=== PATIENT | female | born 2000 | race Caucasian/White ===

== ENCOUNTER → 2018-08-16 | Outpatient (CLI) | payer OTHER ==
[2018-08-16 13:51] LABS: ALBUMIN 3.9 GM/DL (3.2-5.2); ALT/SGPT 158 U/L (12-78); BILIRUBIN,TOTAL 0.4 MG/DL (0.2-1.0); BLOOD UREA NITROGEN 8 MG/DL (7-18); CALCIUM LEVEL 8.7 MG/DL (8.5-10.1); CARBON DIOXIDE LEVEL 24 MEQ/L (21-32); CHLORIDE LEVEL 106 MEQ/L (98-107); CREATININE FOR GFR 0.72 MG/DL (0.55-1.30); GLUCOSE, FASTING 88 MG/DL (70-100); POTASSIUM SERUM 4.1 MEQ/L (3.5-5.1); SODIUM LEVEL 140 MEQ/L (136-145); TOTAL PROTEIN 7.6 GM/DL (6.4-8.2)
[2018-08-16 13:52] LABS: FREE T4 1.45 NG/DL (0.78-1.33)
[2018-08-16 14:03] LABS: BASO # 0.1 10^3/uL (0.0-0.2); BASO % 0.9 % (0.0-1.0); EOS # 0.1 10^3/uL (0.0-0.50); EOS % 1.3 % (0.0-3.0); HEMATOCRIT 42.5 % (36.0-47.0); HEMOGLOBIN 15.5 g/dl (12.0-15.5); LYMPH # 2.6 10^3/uL (1.5-6.5); LYMPH % 27.4 % (24.0-44.0); MEAN CORPUSCULAR HEMOGLOBIN 31.5 pg (27.0-33.0); MEAN CORPUSCULAR HGB CONC 36.5 g/dl (32.0-36.5); MEAN CORPUSCULAR VOLUME 86.4 fl (80.0-96.0); MONO # 0.7 10^3/uL (0.0-0.8); NEUTROPHILS % 63.1 % (36.0-66.0); PLATELET COUNT, AUTOMATED 371 10^3/uL (150-450); RED BLOOD COUNT 4.92 10^6/uL (4.00-5.40); WHITE BLOOD COUNT 9.5 10^3/uL (4.0-10.0)
== END ==
LOC: M WUC 11:04
PROVIDERS: ATTEND Physician Assistant
DX: A09 Infectious gastroenteritis and colitis, unspecified (principal)

== ENCOUNTER → 2018-08-16 | Outpatient (REF) | payer OTHER | LOC: M LAB REF 14:18 | PROVIDERS: ATTEND Physician Assistant | DX: A09 Infectious gastroenteritis and colitis, unspecified (principal) ==

== ENCOUNTER 2021-02-11 22:50 | Emergency (ER) | payer OTHER ==
[~2021-02-11] VITALS: Ht 165.1 cm; Wt 108.1 kg
[2021-02-11] MEDS ORDERED: CYCL-707 (23:00)
[2021-02-11] MEDS ORDERED: IBUP80TA (23:00)
[2021-02-12] MEDS ORDERED: KETOROLAC 60MG 2ML VIAL IM ONE (00:20)
[2021-02-12] MEDS ORDERED: GABAPENTIN 300 MG CAP PO ONE (00:20)
[2021-02-12] MEDS ORDERED: diazePAM 5MG TABLET PO ONE (00:20)
--- NOTE | 2021-02-12 02:14 | REPVR ---
PROCEDURE INFORMATION: Exam: XR Lumbosacral Spine Exam date and time: 02/12/2021 12:18 AM Age: 20 years old Clinical indication: Other: Pain with radiculopathy TECHNIQUE: Imaging protocol: XR of the lumbosacral spine. Views: 4 or 5 views. COMPARISON: No relevant prior studies available. FINDINGS: Bones/joints: Normal. No acute fracture. Normal alignment. Soft tissues: Unremarkable. IMPRESSION: No acute findings. Electronically signed by: Jaswant Hernandez On 02/12/2021 02:13:49 AM
[2021-02-12] MEDS ORDERED: NEUR300C PO (02:21)
[2021-02-12] MEDS ORDERED: IBUP80TA PO (02:21)
[2021-02-12] MEDS ORDERED: METH-1165 PO (02:21)
[2021-02-12] MEDS ORDERED: PRED20TA PO (02:21)
[2021-02-12 02:29] VITALS: BP 129/75
== END 2021-02-12 02:30 | disposition home or self-care (01) ==
LOC: M ED 22:50
DX: M54.41 Lumbago with sciatica, right side (principal); F17.290 Nicotine dependence, other tobacco product, uncomplicated; Z88.1 Allergy status to other antibiotic agents; Z79.899 Other long term (current) drug therapy
CPT/HCPCS: 72110; 96372; 99283; J1885

== ENCOUNTER → 2022-04-25 | Outpatient (CLI) | payer OTHER ==
[~2022-04-25] MED LIST: CYCL-707; IBUP80TA; IBUP80TA PO; METH-1165 PO; NEUR300C PO; PRED20TA PO
[2022-04-25 15:47] LABS: FREE T4 1.05 NG/DL (0.76-1.46); THYROID STIMULATING HORMONE 0.915 uIU/ML (0.358-3.740)
[2022-04-25 16:09] LABS: FOLLICLE STIMULATING HORMONE 7.3 mIU/mL; LUTEINIZING HORMONE 17.5 mIU/mL; PROGESTERONE 0.7 NG/ML; PROLACTIN 5.6 NG/ML
== END ==
LOC: M PLALAB 09:56
PROVIDERS: ATTEND Specialist
DX: N92.6 Irregular menstruation, unspecified (principal)

== ENCOUNTER → 2022-07-25 | Outpatient (CLI) | payer MEDICAID, OTHER, SELFPAY | LOC: M WHC 07:29 | PROVIDERS: ATTEND Advanced Practice Midwife | DX: Z34.00 Encounter for supervision of normal first pregnancy, unspecified trimester (principal) ==

== ENCOUNTER → 2022-10-18 | Outpatient (CLI) | payer BC, OTHER | LOC: M WHC 09:07 | PROVIDERS: ATTEND Advanced Practice Midwife | DX: Z34.00 Encounter for supervision of normal first pregnancy, unspecified trimester (principal) ==

== ENCOUNTER → 2022-12-11 | Outpatient (CLI) | payer BC, OTHER | LOC: M WHC 09:22 | PROVIDERS: ATTEND Advanced Practice Midwife | DX: Z34.00 Encounter for supervision of normal first pregnancy, unspecified trimester (principal) ==

== ENCOUNTER → 2023-01-10 | Outpatient (CLI) | payer BC, OTHER ==
[2023-01-10 11:10] LABS: BASO % 0.3 % (0.0-1.0); EOS # 0.1 10^3/uL (0.0-0.5); HEMATOCRIT 34.6 % (36.0-47.0); HEMOGLOBIN 12.1 g/dl (12.0-15.5); LYMPH # 2.3 10^3/uL (1.5-5.0); LYMPH % 18.7 % (24.0-44.0); MEAN CORPUSCULAR HEMOGLOBIN 32.5 pg (27.0-33.0); MONO # 0.8 10^3/uL (0.0-0.8); MONO % 6.1 % (2.0-8.0); NEUTROPHILS # 9.2 10^3/uL (1.5-8.5); NEUTROPHILS % 73.3 % (36.0-66.0); PLATELET COUNT, AUTOMATED 296 10^3/uL (150-450); RED BLOOD COUNT 3.72 10^6/uL (4.00-5.40); WHITE BLOOD COUNT 12.5 10^3/uL (4.0-10.0)
[2023-01-10 11:15] LABS: BLOOD UREA NITROGEN 7 MG/DL (9-23); CALCIUM LEVEL 8.7 MG/DL (8.5-10.1); CARBON DIOXIDE LEVEL 25 MMOL/L (20-31); CHLORIDE LEVEL 106 MMOL/L (98-107); CREATININE FOR GFR 0.54 MG/DL (0.55-1.30); GLOMERULAR FILTRATION RATE > 60.0 (>60); GLUCOSE, FASTING 99 MG/DL (60-100); POTASSIUM SERUM 4.3 MMOL/L (3.5-5.1); SODIUM LEVEL 138 MMOL/L (136-145)
[2023-01-10 11:46] LABS: HEMOGLOBIN A1c 4.9 % (4.0-6.0)
== END ==
LOC: M PLALAB 08:17
PROVIDERS: ATTEND Advanced Practice Midwife
DX: Z34.00 Encounter for supervision of normal first pregnancy, unspecified trimester (principal)

== ENCOUNTER 2023-02-09 09:48 | Inpatient (IN) | payer BC, OTHER ==
[~2023-02-09] VITALS: Ht 167.6 cm; Wt 113.1 kg
[~2023-02-09 09:48] MED LIST changes: -ACET-683 PO; -LABE20TAB PO; -PRENTAB9 PO; -TUMS500C PO
[2023-02-09] MEDS ORDERED: TUMS500C PO (10:21)
[2023-02-09] MEDS ORDERED: PRENTAB9 PO (10:21)
[2023-02-09] MEDS ORDERED: HOME MED LIST COMPLETE! XX SCH (10:25)
[2023-02-09 10:26] VITALS: BP 179/109
[2023-02-09 10:48] VITALS: BP 148/83
[2023-02-09] MEDS ORDERED: LACTATED RINGER'S 1000 ML IV STA (12:19)
[2023-02-09] MEDS ORDERED: TRANEXAMIC ACID INJection 1,000 MG in NS 100 ML IV PRN (12:20)
[2023-02-09] MEDS ORDERED: METHYLERGONOVINE MALEATE 0.2MG/ML 1ML VIAL IM PRN (12:20)
[2023-02-09] MEDS ORDERED: OXYTOCIN DRIP 30 UNITS in IV 1 EA IV PRN (12:20)
[2023-02-09] MEDS ORDERED: CARBOPROST TROMETHAMINE 250 MCG/ML AMP IM PRN (12:20)
[2023-02-09] MEDS ORDERED: LIDOCAINE 1% MDV 20ML VIAL INFIL PRN (12:20)
[2023-02-09 12:30] VITALS: BP 135/98
[2023-02-09 13:06] LABS: HEMATOCRIT 34.5 % (36.0-47.0); HEMOGLOBIN 12.2 g/dl (12.0-15.5); MEAN CORPUSCULAR HGB CONC 35.4 g/dl (32.0-36.5); MEAN CORPUSCULAR VOLUME 90.6 fl (80.0-96.0); PLATELET COUNT, AUTOMATED 248 10^3/uL (150-450); RED BLOOD COUNT 3.81 10^6/uL (4.00-5.40); WHITE BLOOD COUNT 12.2 10^3/uL (4.0-10.0)
[2023-02-09] MEDS: miSOPROStol 50MCG 1/2 TABLET PO SCH ×3 (13:08→20:59)
[2023-02-09 13:30] LABS: TOTAL PROTEIN,RANDOM URINE 17.1 MG/DL (0.0-14.0)
[2023-02-09 13:35] LABS: CREATININE,RANDOM URINE 31.2 MG/DL
[2023-02-09 14:08] LABS: HIV 1&2 SCREEN NEGATIVE (NEGATIVE)
[2023-02-09 14:14] VITALS: BP 143/94
[2023-02-09 14:33] LABS: URIC ACID 7.1 MG/DL (3.1-7.8)
[2023-02-09 14:35] LABS: LDH LACTATE DEHYDROGENASE 218 U/L (120-246)
[2023-02-09 14:36] LABS: ALT/SGPT 23 U/L (7.0-40); AST/SGOT 26 U/L (<34); BILIRUBIN,TOTAL 0.3 MG/DL (0.3-1.2); CREATININE FOR GFR 0.53 MG/DL (0.55-1.30); GLOMERULAR FILTRATION RATE > 60.0 (>60)
[2023-02-09] MEDS ORDERED: SLF 3 ML SYR IV PRN (15:25)
[2023-02-09 15:34] VITALS: BP 144/89
[2023-02-09 17:07] VITALS: BP 114/58
[2023-02-09] MEDS: SLF 3 ML SYR IV SCH (22:00)
[2023-02-10] VITALS (31 sets, daily range): BP systolic 82–176; BP diastolic 52–113
[2023-02-10] MEDS: miSOPROStol 50MCG 1/2 TABLET PO SCH ×4 (01:42→12:30)
[2023-02-10] MEDS: SLF 3 ML SYR IV SCH ×3 (06:00→22:00)
[2023-02-10] MEDS ORDERED: LR 1,000 ML IV SCH (13:35)
[2023-02-10] MEDS ORDERED: OXYTOCIN DRIP 30 UNITS in IV 1 EA IV SCH ×2 (13:35→23:50)
[2023-02-10] MEDS ORDERED: ePHEDrine SULFATE 25 MG/5 ML(5MG/ML) SYRINGE IVP PRN (20:20)
[2023-02-10] MEDS ORDERED: LR 500 ML IV PRN (20:20)
[2023-02-10] MEDS ORDERED: EPIDURAL/PCA KEYS XX PRN (20:20)
[2023-02-10] MEDS ORDERED: ONDANSETRON 4MG 2ML VIAL IV PRN (20:20)
[2023-02-10] MEDS ORDERED: FENTANYL/ROPIVACAINE/NACL BAG 100 ML EPIDURAL SCH (20:20)
[2023-02-10] MEDS ORDERED: diphenhydrAMINE 50MG/ML VIAL IV PRN (20:20)
[2023-02-10] MEDS ORDERED: NALOXONE INJ 0.4MG/1ML VIAL IV PRN (20:20)
[2023-02-10] MEDS ORDERED: IBUPROFEN 800 MG TAB PO PRN (23:50)
[2023-02-10] MEDS ORDERED: MOM 30ML SUSPENSION UDC PO PRN (23:50)
[2023-02-10] MEDS ORDERED: ANUSOL HC CREAM 30GM TOP PRN (23:50)
[2023-02-10] MEDS ORDERED: METHYLERGONOVINE MALEATE 0.2 MG TAB PO PRN (23:50)
[2023-02-10] MEDS ORDERED: RHOGAM 300MCG (1500IU) INJ IM SCH (23:50)
[2023-02-10] MEDS ORDERED: ACETAMINOPHEN 500 MG TAB PO PRN (23:50)
[2023-02-10] MEDS ORDERED: DOCUSATE SODIUM 100MG CAPSULE PO PRN (23:50)
[2023-02-10] MEDS ORDERED: DIBUCAINE 1% OINTMENT 30GM TOP PRN (23:50)
[2023-02-10] MEDS ORDERED: ACETAMINOPHEN TAB 650MG DOSE (2X325MG) PO PRN (23:50)
[2023-02-11] VITALS (9 sets, daily range): BP systolic 126–162; BP diastolic 73–96; O2SAT 96–98
[2023-02-11] MEDS: SLF 3 ML SYR IV SCH ×3 (06:35→22:02)
[2023-02-11] MEDS: PRENATAL VITAMINS CHEWABLE TABLET PO SCH (08:06)
[2023-02-11] MEDS: IBUPROFEN 600MG TAB PO PRN ×3 (08:06→22:08)
[2023-02-12] VITALS (8 sets, daily range): BP systolic 138–166; BP diastolic 78–103; O2SAT 97–98
[2023-02-12] MEDS ORDERED: MEASLES,MUMPS,RUBELLA VACCINE INJ (MMR-II) SC.IMMUN ONE (09:00)
[2023-02-12 09:15] LABS: HEMATOCRIT 32.3 % (36.0-47.0); HEMOGLOBIN 11.3 g/dl (12.0-15.5); MEAN CORPUSCULAR HEMOGLOBIN 32.2 pg (27.0-33.0); PLATELET COUNT, AUTOMATED 208 10^3/uL (150-450); RED BLOOD COUNT 3.51 10^6/uL (4.00-5.40); WHITE BLOOD COUNT 11.3 10^3/uL (4.0-10.0)
[2023-02-12] MEDS: SLF 3 ML SYR IV SCH ×3 (09:30→20:50)
[2023-02-12] MEDS: PRENATAL VITAMINS CHEWABLE TABLET PO SCH (09:32)
[2023-02-12 09:36] LABS: URIC ACID 6.4 MG/DL (3.1-7.8)
[2023-02-12 09:39] LABS: ALT/SGPT 20 U/L (7.0-40); AST/SGOT 25 U/L (<34); BILIRUBIN,TOTAL 0.2 MG/DL (0.3-1.2); CREATININE FOR GFR 0.61 MG/DL (0.55-1.30); GLOMERULAR FILTRATION RATE > 60.0 (>60); LDH LACTATE DEHYDROGENASE 208 U/L (120-246)
[2023-02-12] MEDS: LABETALOL 200 MG TAB PO SCH ×2 (09:39→21:00)
[2023-02-13 01:58] VITALS: BP 138/80; O2SAT 99
[2023-02-13 06:00] VITALS: BP 132/75; O2SAT 96
[2023-02-13] MEDS: SLF 3 ML SYR IV SCH (06:00)
[2023-02-13] MEDS: PRENATAL VITAMINS CHEWABLE TABLET PO SCH (08:01)
[2023-02-13 08:02] VITALS: BP 133/73
[2023-02-13] MEDS: LABETALOL 200 MG TAB PO SCH (08:02)
[2023-02-13] MEDS ORDERED: LABE20TAB PO (09:48)
[2023-02-13] MEDS ORDERED: ACET-683 PO (09:48)
[2023-02-13 10:00] VITALS: BP 134/68; O2SAT 95
== END 2023-02-13 10:20 | disposition home or self-care (01) | DRG 560 ==
LOC: M LDO 09:48 → M LDI 11:39 → M OBS 02-11 01:13
PROVIDERS: ADMIT Advanced Practice Midwife; ATTEND Obstetrics & Gynecology
PROC: 3E0P7GC Introduction of Other Therapeutic Substance into Female Reproductive, Via Natural or Artificial Opening (ICD-10-PCS; 2023-02-09)
PROC: 10E0XZZ Delivery of Products of Conception, External Approach (ICD-10-PCS; principal; 2023-02-10)
PROC: 0HQ9XZZ Repair Perineum Skin, External Approach (ICD-10-PCS; 2023-02-10)
DX: O41.03X0 Oligohydramnios, third trimester, not applicable or unspecified (principal); O70.0 First degree perineal laceration during delivery; Z3A.36 36 weeks gestation of pregnancy; O14.94 Unspecified pre-eclampsia, complicating childbirth; Z37.0 Single live birth

== ENCOUNTER → 2023-02-09 | Outpatient (CLI) | payer BC, OTHER ==
[~2023-02-09] MED LIST changes: +ACET-683 PO; +LABE20TAB PO; +PRENTAB9 PO; +TUMS500C PO
== END ==
LOC: M RAD 08:46
PROVIDERS: ATTEND Family Medicine
DX: Z34.00 Encounter for supervision of normal first pregnancy, unspecified trimester (principal)

== ENCOUNTER 2023-07-09 21:23 | Emergency (ER) | payer BC, OTHER ==
[~2023-07-09] VITALS: Ht 165.1 cm; Wt 109.4 kg
[~2023-07-09 21:23] MED LIST changes: +ACET-683 PO; +LABE20TAB PO; +PRENTAB9 PO; +TUMS500C PO
[2023-07-09 21:56] LABS: URINE PREG TEST NEGATIVE (NEGATIVE)
[2023-07-10] MEDS ORDERED: BOOSTRIX VACCINE (TETANUS/DIPHTH/ACEL. PERTUSSIS) 0.5ML SYR IM.IMMUN ONE (02:45)
[2023-07-10] MEDS ORDERED: DOXY-444 PO (02:49)
[2023-07-10] MEDS ORDERED: DOXYCYCLINE HYCLATE 100MG TABLET PO ONE (02:50)
[2023-07-10 02:59] VITALS: BP 130/78; TEMP 98.6; O2SAT 98
== END 2023-07-10 03:03 | disposition home or self-care (01) ==
LOC: M ED 21:23
DX: S60.871A Other superficial bite of right wrist, initial encounter (principal); W55.01XA Bitten by cat, initial encounter; Y92.89 Other specified places as the place of occurrence of the external cause; I10 Essential (primary) hypertension; Z88.0 Allergy status to penicillin; Z79.899 Other long term (current) drug therapy

== ENCOUNTER → 2024-01-17 | Outpatient (REF) | payer OTHER, BC ==
[~2024-01-17] MED LIST changes: +DOXY-440 PO
== END ==
LOC: M SFHCWAGY 15:05
PROVIDERS: ATTEND Nurse Practitioner Family
DX: Z12.4 Encounter for screening for malignant neoplasm of cervix (principal)

== ENCOUNTER → 2024-04-29 | Outpatient (CLI) | payer BC, OTHER, SELFPAY ==
[2024-04-29 12:53] LABS: HEMOGLOBIN 13.4 g/dl (12.0-15.5); MEAN CORPUSCULAR HEMOGLOBIN 32.1 pg (27.0-33.0); MEAN CORPUSCULAR HGB CONC 36.2 g/dl (32.0-36.5); MEAN CORPUSCULAR VOLUME 88.7 fl (80.0-96.0); PLATELET COUNT, AUTOMATED 319 10^3/uL (150-450); RED BLOOD COUNT 4.17 10^6/uL (4.00-5.40); WHITE BLOOD COUNT 11.2 10^3/uL (4.0-10.0)
[2024-04-29 13:15] LABS: URIC ACID 6.1 MG/DL (3.1-7.8)
[2024-04-29 13:18] LABS: LDH LACTATE DEHYDROGENASE 177 U/L (120-246)
[2024-04-29 13:19] LABS: ALT/SGPT 33 U/L (7.0-40); AST/SGOT 19 U/L (<34); BILIRUBIN,TOTAL 0.4 MG/DL (0.3-1.2); CREATININE FOR GFR 0.58 MG/DL (0.55-1.30); GLOMERULAR FILTRATION RATE > 60.0 (>60)
[2024-04-29 14:59] LABS: GC DNA AMPLIFICATION NEGATIVE (NEGATIVE)
[2024-04-30 11:32] LABS: HIV 1&2 SCREEN NEGATIVE (NEGATIVE)
[2024-04-30 11:38] LABS: HEPATITIS C VIRUS ABY INDEX 0.02 INDEX (<0.8)
== END ==
LOC: M PLALAB 10:35
PROVIDERS: ATTEND Nurse Practitioner Women's Health
DX: Z34.80 Encounter for supervision of other normal pregnancy, unspecified trimester (principal)

== ENCOUNTER → 2024-08-21 | Outpatient (CLI) | payer MEDICAID, OTHER | LOC: M RAD 10:32 | PROVIDERS: ATTEND Advanced Practice Midwife | DX: Z34.82 Encounter for supervision of other normal pregnancy, second trimester (principal) ==

== ENCOUNTER → 2024-09-01 | Outpatient (CLI) | payer MEDICAID, OTHER ==
[2024-09-01 15:07] LABS: LDH LACTATE DEHYDROGENASE 152 U/L (120-246)
[2024-09-01 15:08] LABS: ALT/SGPT 17 U/L (7.0-40); AST/SGOT 13 U/L (<34); BILIRUBIN,TOTAL 0.2 MG/DL (0.3-1.2); CREATININE FOR GFR 0.43 MG/DL (0.55-1.30); GLOMERULAR FILTRATION RATE > 60.0 (>60)
[2024-09-01 15:27] LABS: HEMATOCRIT 35.3 % (36.0-47.0); HEMOGLOBIN 12.5 g/dl (12.0-15.5); MEAN CORPUSCULAR HEMOGLOBIN 32.6 pg (27.0-33.0); MEAN CORPUSCULAR HGB CONC 35.4 g/dl (32.0-36.5); MEAN CORPUSCULAR VOLUME 92.2 fl (80.0-96.0); PLATELET COUNT, AUTOMATED 281 10^3/uL (150-450); RED BLOOD COUNT 3.83 10^6/uL (4.00-5.40); WHITE BLOOD COUNT 14.2 10^3/uL (4.0-10.0)
[2024-09-01 15:40] LABS: TOTAL PROTEIN,RANDOM URINE 27.1 MG/DL (0.0-14.0)
[2024-09-01 15:43] LABS: HIV 1&2 SCREEN NEGATIVE (NEGATIVE)
[2024-09-01 15:44] LABS: CREATININE,RANDOM URINE 136.1 MG/DL
[2024-09-01 15:52] LABS: HEPATITIS C VIRUS ABY INDEX < 0.02 INDEX (<0.8)
[2024-09-01 15:54] LABS: URIC ACID 4.6 MG/DL (3.1-7.8)
[2024-09-01 16:28] LABS: GC DNA AMPLIFICATION NEGATIVE (NEGATIVE)
== END ==
LOC: M PLALAB 09:32
PROVIDERS: ATTEND Specialist
DX: Z34.82 Encounter for supervision of other normal pregnancy, second trimester (principal)

== ENCOUNTER → 2024-09-01 | Outpatient (CLI) | payer OTHER | LOC: M PLALAB 13:51 | PROVIDERS: ATTEND Specialist | DX: Z34.82 Encounter for supervision of other normal pregnancy, second trimester (principal) ==

== ENCOUNTER → 2024-09-10 | Outpatient (CLI) | payer MEDICAID, OTHER ==
[2024-09-10 13:56] LABS: HEMATOCRIT 34.5 % (36.0-47.0); HEMOGLOBIN 12.3 g/dl (12.0-15.5); MEAN CORPUSCULAR HGB CONC 35.7 g/dl (32.0-36.5); MEAN CORPUSCULAR VOLUME 92.5 fl (80.0-96.0); PLATELET COUNT, AUTOMATED 258 10^3/uL (150-450); RED BLOOD COUNT 3.73 10^6/uL (4.00-5.40); WHITE BLOOD COUNT 13.1 10^3/uL (4.0-10.0)
[2024-09-10 14:23] LABS: TOTAL PROTEIN,RANDOM URINE 26.2 MG/DL (0.0-14.0)
[2024-09-10 14:24] LABS: URIC ACID 5.9 MG/DL (3.1-7.8)
[2024-09-10 14:26] LABS: LDH LACTATE DEHYDROGENASE 143 U/L (120-246)
[2024-09-10 14:28] LABS: CREATININE,RANDOM URINE 173.9 MG/DL
[2024-09-10 15:16] LABS: ALBUMIN 3.1 G/DL (3.2-5.2); ALKALINE PHOSPHATASE 85 U/L (35-104); ALT/SGPT 15 U/L (7.0-40); AST/SGOT 12 U/L (<34); BILIRUBIN,TOTAL 0.3 MG/DL (0.3-1.2); BLOOD UREA NITROGEN 9 MG/DL (9-23); CALCIUM LEVEL 9.2 MG/DL (8.5-10.1); CARBON DIOXIDE LEVEL 24 MMOL/L (20-31); CHLORIDE LEVEL 103 MMOL/L (98-107); CREATININE FOR GFR 0.46 MG/DL (0.55-1.30); GLOMERULAR FILTRATION RATE > 60.0 (>60); GLUCOSE, FASTING 93 MG/DL (60-100); POTASSIUM SERUM 4.2 MMOL/L (3.5-5.1); SODIUM LEVEL 139 MMOL/L (136-145); TOTAL PROTEIN 6.6 G/DL (5.7-8.2)
== END ==
LOC: M PLALAB 10:51
PROVIDERS: ATTEND Obstetrics & Gynecology
DX: O14.93 Unspecified pre-eclampsia, third trimester (principal)

== ENCOUNTER 2024-09-14 12:35 | Outpatient (CLI) | payer MEDICAID, OTHER ==
[~2024-09-14] VITALS: Ht 165.1 cm; Wt 109.1 kg
[2024-09-14 12:50] VITALS: BP 134/80
[2024-09-14] MEDS ORDERED: ASPI81CH33 PO (12:57)
[2024-09-14] MEDS ORDERED: LABE100T40 PO (12:57)
[2024-09-14] MEDS ORDERED: HOME MED LIST COMPLETE! XX SCH (13:00)
== END 2024-09-14 14:03 | disposition home or self-care (01) ==
LOC: M LDO 12:35
PROVIDERS: ATTEND Specialist
DX: O36.8130 Decreased fetal movements, third trimester, not applicable or unspecified (principal); O10.012 Pre-existing essential hypertension complicating pregnancy, second trimester; Z3A.28 28 weeks gestation of pregnancy; Z88.0 Allergy status to penicillin
CPT/HCPCS: 59025; 76815; G0463

== ENCOUNTER → 2024-10-09 | Outpatient (CLI) | payer OTHER ==
[~2024-10-09] MED LIST changes: +ASPI81CH33 PO; +LABE100T40 PO
[2024-10-09 13:13] LABS: HEMOGLOBIN 12.1 g/dl (12.0-15.5); MEAN CORPUSCULAR HEMOGLOBIN 32.4 pg (27.0-33.0); MEAN CORPUSCULAR HGB CONC 35.6 g/dl (32.0-36.5); MEAN CORPUSCULAR VOLUME 91.2 fl (80.0-96.0); PLATELET COUNT, AUTOMATED 263 10^3/uL (150-450); RED BLOOD COUNT 3.73 10^6/uL (4.00-5.40); WHITE BLOOD COUNT 13.6 10^3/uL (4.0-10.0)
[2024-10-09 13:27] LABS: TOTAL PROTEIN,RANDOM URINE 34.1 MG/DL (0.0-14.0)
[2024-10-09 13:30] LABS: URIC ACID 5.7 MG/DL (3.1-7.8)
[2024-10-09 13:32] LABS: LDH LACTATE DEHYDROGENASE 155 U/L (120-246)
[2024-10-09 13:33] LABS: ALT/SGPT 19 U/L (7.0-40); AST/SGOT 15 U/L (<34); BILIRUBIN,TOTAL 0.3 MG/DL (0.3-1.2); GLOMERULAR FILTRATION RATE > 60.0 (>60)
== END ==
LOC: M PLALAB 11:39
PROVIDERS: ATTEND Obstetrics & Gynecology
DX: O13.3 Gestational [pregnancy-induced] hypertension without significant proteinuria, third trimester (principal)

== ENCOUNTER → 2024-10-27 | Outpatient (CLI) | payer OTHER | LOC: M WHC 13:43 | PROVIDERS: ATTEND Obstetrics & Gynecology | DX: Z34.82 Encounter for supervision of other normal pregnancy, second trimester (principal) ==

== ENCOUNTER 2024-10-30 18:07 | Outpatient (CLI) | payer OTHER, MEDICAID ==
[~2024-10-30] VITALS: Ht 165.1 cm; Wt 112.9 kg
[2024-10-30 18:46] VITALS: BP 130/60
[2024-10-30] MEDS ORDERED: HOME MED LIST COMPLETE! XX SCH (18:50)
[2024-10-30 19:01] VITALS: BP 122/62
[2024-10-30 20:18] LABS: HEMATOCRIT 31.5 % (36.0-47.0); HEMOGLOBIN 11.5 g/dl (12.0-15.5); MEAN CORPUSCULAR HEMOGLOBIN 32.5 pg (27.0-33.0); MEAN CORPUSCULAR HGB CONC 36.5 g/dl (32.0-36.5); PLATELET COUNT, AUTOMATED 250 10^3/uL (150-450); RED BLOOD COUNT 3.54 10^6/uL (4.00-5.40)
[2024-10-30 20:30] LABS: URIC ACID 5.8 MG/DL (3.1-7.8)
[2024-10-30 20:32] LABS: LDH LACTATE DEHYDROGENASE 169 U/L (120-246)
[2024-10-30 20:33] LABS: ALT/SGPT 21 U/L (7.0-40); AST/SGOT 20 U/L (<34); BILIRUBIN,TOTAL 0.3 MG/DL (0.3-1.2); CREATININE FOR GFR 0.47 MG/DL (0.55-1.30); GLOMERULAR FILTRATION RATE > 60.0 (>60)
[2024-10-30 20:36] VITALS: BP 109/62
[2024-10-30 21:02] LABS: CREATININE,RANDOM URINE 176.9 MG/DL
== END 2024-10-30 21:12 | disposition home or self-care (01) ==
LOC: M LDO 18:07
PROVIDERS: ATTEND Obstetrics & Gynecology
DX: O13.3 Gestational [pregnancy-induced] hypertension without significant proteinuria, third trimester (principal); O99.333 Smoking (tobacco) complicating pregnancy, third trimester; O09.293 Supervision of pregnancy with other poor reproductive or obstetric history, third trimester; F17.290 Nicotine dependence, other tobacco product, uncomplicated; Z3A.34 34 weeks gestation of pregnancy
CPT/HCPCS: 59025; 82247; 82570; 83615; 84156; 84450; 84460; 84550; 85027; G0463

== ENCOUNTER 2024-11-02 15:11 | Outpatient (CLI) | payer MEDICAID, OTHER ==
[~2024-11-02] VITALS: Ht 165.1 cm; Wt 112.5 kg
[2024-11-02 15:33] VITALS: BP 123/82
[2024-11-02] MEDS ORDERED: HOME MED LIST COMPLETE! XX SCH (15:35)
[2024-11-02 16:08] VITALS: BP 107/61
[2024-11-02 16:20] LABS: KETONE, URINE AUTO RFX NEGATIVE (NEGATIVE); MUCUS, URINE RFX LARGE (NEGATIVE); NITRITE, URINE AUTO RFX NEGATIVE (NEGATIVE); RBC, URINE AUTO RFX 3 /HPF (0-3); SQUAM EPITHELIAL CELL UR AURFX 12 /HPF (0-6); WBC, URINE AUTO RFX 6 /HPF (0-3)
[2024-11-02 16:21] LABS: LEUKOCYTE ESTERASE UR AUTO RFX 1+ (NEGATIVE)
[2024-11-02 16:23] VITALS: BP 114/65
[2024-11-02 16:38] VITALS: BP 105/58
[2024-11-02 16:40] LABS: TOTAL PROTEIN,RANDOM URINE 18.7 MG/DL (0.0-14.0)
[2024-11-02 16:55] LABS: HEMATOCRIT 31.6 % (36.0-47.0); HEMOGLOBIN 11.5 g/dl (12.0-15.5); MEAN CORPUSCULAR HEMOGLOBIN 32.8 pg (27.0-33.0); MEAN CORPUSCULAR HGB CONC 36.4 g/dl (32.0-36.5); PLATELET COUNT, AUTOMATED 240 10^3/uL (150-450); RED BLOOD COUNT 3.51 10^6/uL (4.00-5.40)
[2024-11-02 17:15] VITALS: BP 127/72
[2024-11-02 17:23] LABS: URIC ACID 6.3 MG/DL (3.1-7.8)
[2024-11-02 17:25] LABS: LDH LACTATE DEHYDROGENASE 155 U/L (120-246)
[2024-11-02 17:26] LABS: ALT/SGPT 19 U/L (7.0-40); AST/SGOT 22 U/L (<34); BILIRUBIN,TOTAL 0.3 MG/DL (0.3-1.2); CREATININE FOR GFR 0.49 MG/DL (0.55-1.30); GLOMERULAR FILTRATION RATE > 60.0 (>60)
== END 2024-11-02 17:33 | disposition home or self-care (01) ==
LOC: M LDO 15:11
PROVIDERS: ATTEND Obstetrics & Gynecology
DX: O13.3 Gestational [pregnancy-induced] hypertension without significant proteinuria, third trimester (principal); O26.893 Other specified pregnancy related conditions, third trimester; O99.333 Smoking (tobacco) complicating pregnancy, third trimester; O99.343 Other mental disorders complicating pregnancy, third trimester; O99.893 Other specified diseases and conditions complicating puerperium; H53.9 Unspecified visual disturbance; F60.1 Schizoid personality disorder; F17.290 Nicotine dependence, other tobacco product, uncomplicated; Z3A.35 35 weeks gestation of pregnancy
CPT/HCPCS: 59025; 81001; 82247; 82570; 83615; 84156; 84450; 84460; 84550; 85027; 87086; G0463

== ENCOUNTER 2024-11-04 11:08 | Outpatient (CLI) | payer MEDICAID, OTHER ==
[~2024-11-04] VITALS: Ht 165.1 cm; Wt 111.5 kg
[2024-11-04] VITALS (8 sets, daily range): BP systolic 128–150; BP diastolic 71–88
[2024-11-04] MEDS ORDERED: HOME MED LIST COMPLETE! XX SCH (11:35)
[2024-11-04] MEDS: BETAMETHASONE SOLUSPAN 6MG/ML 5ML VIAL IM ONE (12:37)
[2024-11-04 12:48] LABS: HEMATOCRIT 32.9 % (36.0-47.0); HEMOGLOBIN 11.8 g/dl (12.0-15.5); MEAN CORPUSCULAR HGB CONC 35.9 g/dl (32.0-36.5); MEAN CORPUSCULAR VOLUME 89.2 fl (80.0-96.0); PLATELET COUNT, AUTOMATED 265 10^3/uL (150-450); RED BLOOD COUNT 3.69 10^6/uL (4.00-5.40); WHITE BLOOD COUNT 11.4 10^3/uL (4.0-10.0)
[2024-11-04 13:08] LABS: URIC ACID 6.8 MG/DL (3.1-7.8)
[2024-11-04 13:10] LABS: LDH LACTATE DEHYDROGENASE 166 U/L (120-246)
[2024-11-04 13:11] LABS: ALBUMIN 2.7 G/DL (3.2-5.2); ALKALINE PHOSPHATASE 104 U/L (35-104); ALT/SGPT 22 U/L (7.0-40); AST/SGOT 25 U/L (<34); BILIRUBIN,TOTAL 0.3 MG/DL (0.3-1.2); BLOOD UREA NITROGEN 6 MG/DL (9-23); CALCIUM LEVEL 8.9 MG/DL (8.5-10.1); CARBON DIOXIDE LEVEL 22 MMOL/L (20-31); CHLORIDE LEVEL 106 MMOL/L (98-107); CREATININE FOR GFR 0.48 MG/DL (0.55-1.30); GLOMERULAR FILTRATION RATE > 60.0 (>60); GLUCOSE, FASTING 92 MG/DL (60-100); POTASSIUM SERUM 4.2 MMOL/L (3.5-5.1); SODIUM LEVEL 140 MMOL/L (136-145); TOTAL PROTEIN 6.2 G/DL (5.7-8.2)
[2024-11-04 13:18] LABS: TOTAL PROTEIN,RANDOM URINE 20.7 MG/DL (0.0-14.0)
[2024-11-04 13:23] LABS: CREATININE,RANDOM URINE 161.1 MG/DL
== END 2024-11-04 16:29 | disposition home or self-care (01) ==
LOC: M LDO 11:08
PROVIDERS: ATTEND Obstetrics & Gynecology
DX: O13.3 Gestational [pregnancy-induced] hypertension without significant proteinuria, third trimester (principal); O09.293 Supervision of pregnancy with other poor reproductive or obstetric history, third trimester; O99.343 Other mental disorders complicating pregnancy, third trimester; O99.333 Smoking (tobacco) complicating pregnancy, third trimester; F60.1 Schizoid personality disorder; F17.290 Nicotine dependence, other tobacco product, uncomplicated; Z3A.35 35 weeks gestation of pregnancy
CPT/HCPCS: 36415; 59025; 76815; 80053; 82570; 83615; 84156; 84550; 85027; 96372; G0463; J0702

== ENCOUNTER 2024-11-05 10:39 | Outpatient (CLI) | payer OTHER ==
[~2024-11-05] VITALS: Ht 165.1 cm; Wt 112.8 kg
[2024-11-05] MEDS: BETAMETHASONE SOLUSPAN 6MG/ML 5ML VIAL IM ONE (11:17)
== END 2024-11-05 11:25 | disposition home or self-care (01) ==
LOC: M LDO 10:39
PROVIDERS: ATTEND Advanced Practice Midwife
DX: O13.3 Gestational [pregnancy-induced] hypertension without significant proteinuria, third trimester (principal); Z3A.35 35 weeks gestation of pregnancy
CPT/HCPCS: 96372; J0702

== ENCOUNTER → 2024-11-13 | Outpatient (REF) | payer MEDICAID, OTHER | LOC: M SFHCWAGY 12:46 | PROVIDERS: ATTEND Obstetrics & Gynecology | DX: Z36.85 Encounter for antenatal screening for Streptococcus B (principal); Z3A.36 36 weeks gestation of pregnancy ==

== ENCOUNTER 2024-11-20 09:24 | Inpatient (IN) | payer OTHER ==
[2024-11-20] VITALS (14 sets, daily range): BP systolic 111–145; BP diastolic 70–94
[~2024-11-20] VITALS: Ht 165.1 cm; Wt 114.1 kg
[2024-11-20] MEDS ORDERED: TRANEXAMIC ACID INJection 1,000 MG in NS 100 ML IV PRN (09:55)
[2024-11-20] MEDS ORDERED: METHYLERGONOVINE MALEATE 0.2MG/ML 1ML VIAL IM PRN (09:55)
[2024-11-20] MEDS ORDERED: CARBOPROST TROMETHAMINE 250 MCG/ML AMP IM PRN (09:55)
[2024-11-20] MEDS ORDERED: OXYTOCIN DRIP 30 UNITS in IV 1 EA IV PRN (09:55)
[2024-11-20] MEDS ORDERED: LIDOCAINE 1% MDV 20ML VIAL INFIL PRN (09:55)
[2024-11-20] MEDS ORDERED: HOME MED LIST COMPLETE! XX SCH (10:30)
[2024-11-20 11:14] LABS: HEMATOCRIT 33.5 % (36.0-47.0); HEMOGLOBIN 12.1 g/dl (12.0-15.5); MEAN CORPUSCULAR HEMOGLOBIN 32.6 pg (27.0-33.0); MEAN CORPUSCULAR HGB CONC 36.1 g/dl (32.0-36.5); MEAN CORPUSCULAR VOLUME 90.3 fl (80.0-96.0); PLATELET COUNT, AUTOMATED 227 10^3/uL (150-450); RED BLOOD COUNT 3.71 10^6/uL (4.00-5.40); WHITE BLOOD COUNT 11.1 10^3/uL (4.0-10.0)
[2024-11-20] MEDS: miSOPROStol 50MCG 1/2 TABLET PO SCH (11:30)
[2024-11-20] MEDS: LABETALOL 100MG TAB PO SCH (11:30)
[2024-11-20 11:37] LABS: LDH LACTATE DEHYDROGENASE 344 U/L (120-246)
[2024-11-20 12:10] LABS: HIV 1&2 SCREEN NEGATIVE (NEGATIVE)
[2024-11-20 12:18] LABS: HEPATITIS C VIRUS ABY INDEX 0.19 INDEX (<0.8)
[2024-11-20 12:24] LABS: ALT/SGPT 28 U/L (7.0-40); AST/SGOT 47 U/L (<34); BILIRUBIN,TOTAL 0.4 MG/DL (0.3-1.2); CREATININE FOR GFR 0.42 MG/DL (0.55-1.30); GLOMERULAR FILTRATION RATE > 60.0 (>60); URIC ACID 6.2 MG/DL (3.1-7.8)
[2024-11-20] MEDS ORDERED: PROMETHAZINE 25MG/ML 1ML VIAL IV PRN (21:50)
[2024-11-20] MEDS ORDERED: BUTORPHANOL 2 MG/ML 1ML VIAL IV PRN (21:50)
[2024-11-20] MEDS: OXYTOCIN DRIP 30 UNITS in IV 1 EA IV SCH (22:11)
[2024-11-21] VITALS (37 sets, daily range): BP systolic 103–174; BP diastolic 56–105; O2SAT 97
[2024-11-21] MEDS: CALCIUM CARBONATE 500 MG CHEW U/D PO ONE (04:54)
[2024-11-21] MEDS: LR 1,000 ML IV SCH (06:29)
[2024-11-21] MEDS ORDERED: OXYTOCIN INJ 10UNITS/ML 1ML VIAL IV ONE (07:20)
[2024-11-21] MEDS: PRENATAL VITAMINS CHEWABLE TABLET PO SCH (09:00)
[2024-11-21] MEDS ORDERED: NALOXONE INJ 0.4MG/1ML VIAL IV PRN (09:00)
[2024-11-21] MEDS ORDERED: LR 500 ML IV PRN (09:00)
[2024-11-21] MEDS ORDERED: ONDANSETRON 4MG 2ML VIAL IV PRN (09:00)
[2024-11-21] MEDS ORDERED: ePHEDrine SULFATE 25 MG/5 ML(5MG/ML) SYRINGE IVP PRN (09:00)
[2024-11-21] MEDS ORDERED: EPIDURAL/PCA KEYS XX PRN (09:00)
[2024-11-21] MEDS ORDERED: diphenhydrAMINE 50MG/ML VIAL IV PRN (09:00)
[2024-11-21] MEDS: LACTATED RINGER'S 1000 ML IV STA (09:38)
[2024-11-21] MEDS: FENTANYL/ROPIVACAINE/NACL BAG 100 ML EPIDURAL SCH (10:33)
[2024-11-21 13:18] LABS: CORD GAS ABE A -7.1; CORD GAS ABE V -2.8; CORD GAS HCO3 A 23.8 MMOL/L; CORD GAS HCO3 V 22.9 MMOL/L; CORD GAS O2 SAT A 20.2 %; CORD GAS O2 SAT V 69.3 %; CORD GAS PCO2 A 73.5 mmHg; CORD GAS PCO2 V 42.8 mmHg; CORD GAS PH A 7.128 UNITS; CORD GAS PH V 7.346 UNITS; CORD GAS PO2 A 13.4 mmHg; CORD GAS PO2 V 27.9 mmHg; CORD GAS SBC A 17.1 MMOL/L; CORD GAS SBC V 21.5 MMOL/L; CORD GAS TCO2 V 24.2 MMOL/L
[2024-11-21] MEDS ORDERED: METHYLERGONOVINE MALEATE 0.2 MG TAB PO PRN (13:40)
[2024-11-21] MEDS ORDERED: ANUSOL HC CREAM 30GM TOP PRN (13:40)
[2024-11-21] MEDS ORDERED: IBUPROFEN 600MG TAB PO PRN (13:40)
[2024-11-21] MEDS ORDERED: ACETAMINOPHEN 500 MG TAB PO PRN (13:40)
[2024-11-21] MEDS ORDERED: ACETAMINOPHEN 325 MG TAB PO PRN (13:40)
[2024-11-21] MEDS ORDERED: RHOGAM 300MCG (1500IU) INJ IM SCH (13:40)
[2024-11-21] MEDS: OXYTOCIN DRIP 30 UNITS in IV 1 EA IV SCH (13:50)
[2024-11-21] MEDS: TRANEXAMIC ACID INJection 1,000 MG in NS 100 ML IV ONE (13:51)
[2024-11-22 05:52] VITALS: BP 133/90; O2SAT 100
[2024-11-22] MEDS: DOCUSATE SODIUM 100MG CAPSULE PO PRN (07:37)
[2024-11-22] MEDS: DIBUCAINE 1% OINTMENT 30GM TOP PRN (07:38)
[2024-11-22] MEDS: IBUPROFEN 800 MG TAB PO PRN (07:38)
[2024-11-22] MEDS ORDERED: IBUP-1022 PO (09:41)
[2024-11-23] MEDS ORDERED: MEASLES,MUMPS,RUBELLA VACCINE INJ (MMR-II) SC.IMMUN ONE (09:00)
== END 2024-11-22 16:22 | disposition home or self-care (01) | DRG 560 ==
LOC: M LDI 09:24 → M OBS 11-21 15:07
PROVIDERS: ADMIT Obstetrics & Gynecology; ATTEND Advanced Practice Midwife
PROC: 3E0P7GC Introduction of Other Therapeutic Substance into Female Reproductive, Via Natural or Artificial Opening (ICD-10-PCS; 2024-11-20)
PROC: 10E0XZZ Delivery of Products of Conception, External Approach (ICD-10-PCS; principal; 2024-11-21)
DX: O13.4 Gestational [pregnancy-induced] hypertension without significant proteinuria, complicating childbirth (principal); Z37.0 Single live birth; Z3A.37 37 weeks gestation of pregnancy; Z79.82 Long term (current) use of aspirin; Z79.899 Other long term (current) drug therapy